=== PATIENT | male | born 1975 | race Caucasian/White ===

== ENCOUNTER 2025-01-20 18:52 | Inpatient (IN) ==
[2025-01-20 19:39] LABS: Hematocrit (blood only) 34.0 % (42.0-52.0); Hemoglobin 11.0 g/dl (14.0-18.0); Immature Granulocytes # (auto) 0.02 K/uL (0.01-0.20); Immature Granulocytes % (auto) 0.2 %; Mean Corpuscular Hemoglobin 29.2 pg (25.0-34.0); Mean Corpuscular Volume 90.2 fL (80.0-100.0); Platelet Count 198 K/uL (130-400); RDW Standard Deviation 42.2 fL (36.4-46.3); Red Blood Count 3.77 M/uL (4.70-6.10); White Blood Count 8.51 K/ul (4.8-10.8)
[2025-01-20 20:07] LABS: Creatinine Clr Calc Pharmacy 19.2 ml/min
[2025-01-20 20:12] LABS: Alanine Aminotransferase 12.0 U/L (7-52); Albumin Globulin Ratio 0.9 (0.9-2); Alkaline Phosphatase 104.0 U/L (34-104); Anion Gap 11.0 (3-11); Bilirubin,Total 0.2 mg/dl (0.2-1.0); Blood Urea Nitrogen 68.0 mg/dl (6-23); Calcium 7.9 mg/dl (8.6-10.3); Carbon Dioxide 15.0 mmol/L (21-32); Chloride 110.0 mmol/L (98-107); Globulin 4.1 gm/dl (2.5-4.0); Glucose 182.0 mg/dl (70-99(Fasting)); Sodium 136.0 mmol/L (136-145); Total Protein 7.8 gm/dl (6.0-8.3)
[2025-01-20 20:16] LABS: Potassium 4.9 mmol/L (3.5-5.1)
[2025-01-20 22:08] LABS: Appearance Urine Clear (Clear); Bacteria Urine Automated None Seen (None Seen); Cast Urine Automated 0-2 /lpf (0-2); Epithelial Cell Urine Auto 0-2 /hpf (0-2); Glucose Urine UA Trace (Negative); RBC Urine Automated 0-2 /hpf (0-2); WBC Urine Automated 0-5 /hpf (0-5)
--- NOTE | 2025-01-20 22:16 | Emergency Department Note ---
Impression & Plan YUNIOR (acute kidney injury), Chronic renal insufficiency, Uncontrolled hypertension ED Provider Note NAME: KENAN [id number] CECI AGE: 49 SEX: M : 1975 ARRIVES VIA: Walk-In INFORMANT: Patient, ED PROVIDER(S): Chiara Mcdowell MD CHIEF COMPLAINT: Abnormal lab work HPI: This is a 49-year-old male presented for abnormal lab work. Patient is a detainee at a [place] [facility] nearby. He was found to have abnormal blood work in addition to hypertension. He has been started on a new blood pressure medication but was stopped when his blood work revealed that he had increasing kidney function. Reportedly kidney function as high as over 5. His potassium was also elevated as well. He was sent to for further evaluation ROS: See above HPI for pertinent positives & negatives. A total of 10 systems reviewed and were otherwise negative. PAST MEDICAL HISTORY: See Below PAST SURGICAL HISTORY: See Below FAMILY HISTORY: See Below SOCIAL HISTORY: See Below HOME MEDICATIONS: See Below ALLERGIES: See Below VITALS: See Below PHYSICAL EXAMINATION: General: resting comfortably in no acute distress Head: Normocephalic and atraumatic Eyes: Normal inspection, extraocular muscles intact Ear, nose, throat: Normal external exam Neck: Normal range of motion Respiratory: lungs clear to auscultation bilaterally Cardiovascular: Regular rate/rhythm, no murmur GI: soft, nontender, no guarding or rebound Extremities: nontender, moves all extremities Neuro: The patient awake and alert, appropriately conversive, no focal deficits, symmetric faces Skin: Warm, dry, and intact MEDICAL DECISION MAKING: This is a 49-year-old male present for abnormal blood work. Patient had outpatient blood work with high potassium and kidney function. Will confirm today. Patient otherwise asymptomatic without any other symptoms. -Bloodwork is reviewed showing leukocytosis, slight anemia at 11. Otherwise BUN 68, creatinine 5.89. Patient does make urine still. Urinalysis unrevealing. -Will with the patient for elevated creatinine, YUNIOR. Differential diagnosis: YUNIOR, renal failure, anuria Independent History obtained from: [employer] guards Diagnostics interpreted by me: ECG: None Cardiac Monitoring: An order was placed for continuous cardiac monitoring. The monitor shows a rate of 77 with sinus rhythm. Past Med/Surg History Problem List (Updated 01/21/25 @ 14:21 by Chiara Mcdowell MD) Normal anion gap metabolic acidosis Uncontrolled hypertension (Acute) Chronic renal insufficiency (Acute) YUNIOR (acute kidney injury) (Acute) Social History Smoking Status: Never smoker Hx Alcohol Use: Yes Alcohol type: beer Hx Substance Use: No Preferred Language: Frisian Communication Ability: Effective Communication Tools: Other Personal Injury Legal Assistant Required: Yes Beliefs That Will Affect Care: None Current Living Situation: Other Current Living Situation Comment: ice facility Feels Safe at Home: Yes Safety Concerns: Feels Safe At This Time Allergies Allergies Allergy/AdvReac Type Severity Reaction Status Date / Time aspirin Allergy Unknown Verified 01/20/25 19:24 Home Meds Home Medications Medication Instructions Recorded Confirmed amlodipine 10 mg tablet 10 mg PO DAILY 01/20/25 01/20/25 clonidine HCl 0.1 mg tablet 0.1 mg PO BID PRN Hypertension 01/20/25 01/20/25 Results & Data (ED) Vital Signs Vital Signs - 24 hr 01/20/25 18:58 01/20/25 19:12 01/20/25 19:19 Temperature 36.4 C L Temperature Source Temporal Artery Scan Pulse Rate 93 H 84 88 Pulse Rhythm Regular Pulse Strength Normal Respiratory Rate 18 20 Respiratory Effort / Characteristics Non-Labored Spontaneous Respiratory Depth Normal Respiratory Pattern Regular Blood Pressure 189/110 H 165/99 H Blood Pressure Mean 136 120 Blood Pressure Position Sitting Pulse Oximetry 97 98 Oxygen Delivery Method Room Air Room Air Sepsis Recent Fever Within 48 Hours No Sepsis New/Unexplained Change in Mental Status N/A Sepsis Action Taken by Nursing No Action Required 01/20/25 20:00 01/20/25 20:30 Temperature Temperature Source Pulse Rate 85 75 Pulse Rhythm Pulse Strength Respiratory Rate 19 Respiratory Effort / Characteristics Respiratory Depth Respiratory Pattern Blood Pressure 160/91 H 180/104 H Blood Pressure Mean 119 123 Blood Pressure Position Pulse Oximetry 98 98 Oxygen Delivery Method Sepsis Recent Fever Within 48 Hours Sepsis New/Unexplained Change in Mental Status Sepsis Action Taken by Nursing Laboratory Data 01/21/25 06:28 01/21/25 06:28 Lab Results 01/20/25 Range/Units 19:15 WBC 8.51 (4.8-10.8) K/ul RBC 3.77 L (4.70-6.10) M/uL Hgb 11.0 L (14.0-18.0) g/dl Hct 34.0 L (42.0-52.0) % MCV 90.2 (80.0-100.0) fL MCH 29.2 (25.0-34.0) pg MCHC 32.4 (32.0-36.0) g/dL RDW Std Deviation 42.2 (36.4-46.3) fL RDW Coeff of Alba 13.0 (11.5-14.5) % Plt Count 198 (130-400) K/uL MPV 11.8 (9.4-12.4) fL Immature Gran % (Auto) 0.2 % Neut % (Auto) 61.9 % Lymph % (Auto) 24.8 % Weston % (Auto) 8.3 % Eos % (Auto) 4.1 % Baso % (Auto) 0.7 % Neut # (Auto) 5.26 (1.40-6.50) K/uL Lymph # (Auto) 2.11 (1.20-3.40) K/uL Weston # (Auto) 0.71 H (0.11-0.59) K/uL Eos # (Auto) 0.35 (0.00-0.50) K/uL Baso # (Auto) 0.06 (0.00-0.20) K/uL Immature Gran # (Auto) 0.02 (0.01-0.20) K/uL Sodium 136 (136-145) mmol/L Potassium 4.9 (3.5-5.1) mmol/L Chloride 110 H (98-107) mmol/L Carbon Dioxide 15 L (21-32) mmol/L Anion Gap 11 (3-11) BUN 68 H (6-23) mg/dl Creatinine 5.89 H* (0.6-1.4) mg/dl Est Cr Clr Drug Dosing 19.2 ml/min eGFR 10.85 BUN/Creatinine Ratio 11.5 (10-20) Glucose 182 H (70-99(Fasting)) mg/dl Calcium 7.9 L (8.6-10.3) mg/dl Total Bilirubin 0.2 (0.2-1.0) mg/dl AST 12 L (13-39) U/L ALT 12 (7-52) U/L Alkaline Phosphatase 104 (34-104) U/L Total Protein 7.8 (6.0-8.3) gm/dl Albumin 3.7 (3.4-5.0) gm/dl Globulin 4.1 H (2.5-4.0) gm/dl Albumin/Globulin Ratio 0.9 (0.9-2) Administered Medications Amlodipine Besylate (Amlodipine Besylate 5 Mg Tab) 10 mg PO DAILY CALDERON Stop: 02/20/25 08:59 Last Admin: 01/21/25 08:42 Dose: 10 mg Documented By: nick Heparin Sodium (Porcine) (Heparin Sod 5,000 Unit/0.5 Ml Vial) 5,000 units SQ Q8 CALDERON Stop: 02/20/25 05:59 Last Admin: 01/21/25 06:12 Dose: 5,000 units Documented By: YANELIS Labetalol HCl (Labetalol Hcl Iv 5 Mg/Ml 20ml) 10 mg IV Q4H PRN PRN Reason: Hypertension Stop: 02/19/25 22:59 Last Admin: 01/21/25 12:06 Dose: 10 mg Documented By: nick Admin: 01/20/25 23:44 Dose: 10 mg Documented By: YANELIS Sodium Bicarbonate (Sodium Bicarbonate 650 Mg Tab) 650 mg PO TID CALDERON Stop: 02/20/25 08:59 Last Admin: 01/21/25 08:42 Dose: 650 mg Documented By: nick Discontinued Medications Sodium Chloride (Nss) 1,000 mls @ 125 mls/hr IV .Q8H CALDERON Stop: 01/21/25 10:27 Last Infusion: 01/21/25 10:29 Dose: 0 mls/hr Documented By: nick Infusion: 01/21/25 07:44 Dose: 125 mls/hr Documented By: nick Admin: 01/20/25 23:45 Dose: 75 mls/hr Documented By: YANELIS Magnesium Sulfate/Dextrose (Magnesium Sulfate / D5w) 1 gm in 100 mls @ 50 mls/hr IV Q2H CALDERON Stop: 01/21/25 11:29 Last Infusion: 01/21/25 12:31 Dose: Infused Documented By: Admin: 01/21/25 10:13 Dose: 50 mls/hr Documented By: nick Infusion: 01/21/25 10:12 Dose: Infused Documented By: nick Admin: 01/21/25 08:08 Dose: 50 mls/hr Documented By: nick Calcium Gluconate () 1,000 mg in 60 mls @ 240 mls/hr IV NOW STA Stop: 01/21/25 07:42 Last Infusion: 01/21/25 08:05 Dose: Infused Documented By: nick Admin: 01/21/25 07:50 Dose: 240 mls/hr Documented By: nick Discharge Plan Visit Data Chief Complaint: Abnormal Labs/Diagnostic Testing Stated Complaint: ABNORMAL LABS ED Provider: Chiara Mcdowell Discharge Problem: YUNIOR (acute kidney injury), Chronic renal insufficiency, Uncontrolled hypertension Patient Disposition: Admitted As Inpatient Condition: Fair Discharge Instructions Interventions: ED Discharge Assessment Last Done: 01/20/25 22:28
--- NOTE | 2025-01-20 22:33 | History & Physical Report ---
Date of Service January 20, 2025 Assessment & Plan (1) YUNIOR (acute kidney injury): Plan: 49-year-old male coming from [facility] for YUNIOR and hyperkalemia. Patient says he has history of kidney stones and surgery for it in the past few times. Patient says he was started on blood pressure medication couple of weeks ago in the long term center. His creatinine was 5.5 and potassium was 5.4 hence patient was sent here. Patient denies any headache. No dizziness. No blurred vision. No earache. No runny nose. No sore throat. No cough. No difficulty swallowing. Appetite is okay. Denies chest pain or shortness of breath. No nausea. No abdominal pain. Normal bowel and bladder movements. Denies any blood in the urine. Denies any rash. Ambulating okay. Currently resting comfortably. YUNIOR Metabolic acidosis Creatinine 5.8. BUN 68. CO2 15 Will follow renal ultrasound Will follow urine creatinine and protein levels No hematuria on UA 3+ protein Gentle fluids Nephro consult in a.m. Hyperkalemia Outpatient labs potassium of 5.4 In the ER potassium was 4.9 Low potassium diet Follow the labs Hypertensive urgency Patient says recently was started on blood pressure medications Continue amlodipine IV labetalol as needed Will monitor Hyperglycemia Will follow HbA1c levels for now Monitor the blood sugars Anemia will follow stool for Hemoccult and iron studies. DVT prophylaxis Heparin subcu Disposition Telemetry Full code. History of Present Illness Chief Complaint: YUNIOR and hyperkalemia Primary Care Provider: [facility] 49-year-old male coming from [facility] for YUNIOR and hyperkalemia. Patient says he has history of kidney stones and surgery for it in the past few times. Patient says he was started on blood pressure medication couple of weeks ago in the long term center. His creatinine was 5.5 and potassium was 5.4 hence patient was sent here. Patient denies any headache. No dizziness. No blurred vision. No earache. No runny nose. No sore throat. No cough. No difficulty swallowing. Appetite is okay. Denies chest pain or shortness of breath. No nausea. No abdominal pain. Normal bowel and bladder movements. Denies any blood in the urine. Denies any rash. Ambulating okay. Currently resting comfo rtably. Past medical history. As mentioned above. Past surgical history. Surgery for kidney stones. Social history. Denies smoking. Alcohol rarely. No drug use. Family history significant for kidney stones as per patient. Allergies Allergy/AdvReac Type Severity Reaction Status Date / Time aspirin Allergy Unknown Verified 01/20/25 19:24 Home Medications Medication Instructions Recorded Confirmed Type amlodipine 10 mg tablet 10 mg PO DAILY 01/20/25 01/20/25 History clonidine HCl 0.1 mg tablet 0.1 mg PO BID PRN Hypertension 01/20/25 01/20/25 History Past Med/Surg History Problem List (Updated 01/20/25 @ 22:42 by Matthew Wharton MD) YUNIOR (acute kidney injury) Social History Smoking Status: Never smoker Hx Alcohol Use: Yes Alcohol type: beer Hx Substance Use: No Preferred Language: Solomon Islander Communication Ability: Effective Communication Tools: IPad Belt Measurer Required: Yes Beliefs That Will Affect Care: None Current Living Situation: Other Current Living Situation Comment: ice facility Feels Safe at Home: Yes Safety Concerns: Feels Safe At This Time Review of Systems Review of Systems: All systems reviewed & are unremarkable except as noted in HPI & below Physical Exam Physical Exam: General- Not in distress Head- atraumatic Eyes- PERRL. ENT- oropharynx clear Neck- supple, no JVD. Lungs- clear to auscultation no wheezing or crackles Heart- regular rhythm; no murmur, no gallop. Abdomen- normal bowel sounds, soft, nontender, no distension Extremities- no pretibial edema, no erythema seen Neuro- alert, oriented PERRL, no facial palsy; no dysarthria; moves extremities Results & Data Results & Data Vital Signs (Past 12 Hours) Vital Signs Temp Pulse Resp BP Pulse Ox O2 Del Method 01/20/25 20:30 75 19 180/104 H 98 01/20/25 20:00 85 160/91 H 98 01/20/25 19:19 88 20 165/99 H 98 Room Air 01/20/25 19:12 84 01/20/25 18:58 36.4 C L 93 H 18 189/110 H 97 Room Air Diagnostic Findings Laboratory Results WBC 8.51 K/ul (4.8-10.8) 01/20/25 19:15 RBC 3.77 M/uL (4.70-6.10) L 01/20/25 19:15 Hgb 11.0 g/dl (14.0-18.0) L 01/20/25 19:15 Hct 34.0 % (42.0-52.0) L 01/20/25 19:15 MCV 90.2 fL (80.0-100.0) 01/20/25 19:15 MCH 29.2 pg (25.0-34.0) 01/20/25 19:15 MCHC 32.4 g/dL (32.0-36.0) 01/20/25 19:15 RDW Std Deviation 42.2 fL (36.4-46.3) 01/20/25 19:15 RDW Coeff of Alba 13.0 % (11.5-14.5) 01/20/25 19:15 Plt Count 198 K/uL (130-400) 01/20/25 19:15 MPV 11.8 fL (9.4-12.4) 01/20/25 19:15 Immature Gran % (Auto) 0.2 % 01/20/25 19:15 Neut % (Auto) 61.9 % 01/20/25 19:15 Lymph % (Auto) 24.8 % 01/20/25 19:15 Ida % (Auto) 8.3 % 01/20/25 19:15 Eos % (Auto) 4.1 % 01/20/25 19:15 Baso % (Auto) 0.7 % 01/20/25 19:15 Neut # (Auto) 5.26 K/uL (1.40-6.50) 01/20/25 19:15 Lymph # (Auto) 2.11 K/uL (1.20-3.40) 01/20/25 19:15 Ida # (Auto) 0.71 K/uL (0.11-0.59) H 01/20/25 19:15 Eos # (Auto) 0.35 K/uL (0.00-0.50) 01/20/25 19:15 Baso # (Auto) 0.06 K/uL (0.00-0.20) 01/20/25 19:15 Immature Gran # (Auto) 0.02 K/uL (0.01-0.20) 01/20/25 19:15 Sodium 136 mmol/L (136-145) 01/20/25 19:15 Potassium 4.9 mmol/L (3.5-5.1) 01/20/25 19:15 Chloride 110 mmol/L (98-107) H 01/20/25 19:15 Carbon Dioxide 15 mmol/L (21-32) L 01/20/25 19:15 Anion Gap 11 (3-11) 01/20/25 19:15 BUN 68 mg/dl (6-23) H 01/20/25 19:15 Creatinine 5.89 mg/dl (0.6-1.4) H* 01/20/25 19:15 Est Cr Clr Drug Dosing 19.2 ml/min 01/20/25 19:15 eGFR 10.85 01/20/25 19:15 BUN/Creatinine Ratio 11.5 (10-20) 01/20/25 19:15 Glucose 182 mg/dl (70-99(Fasting)) H 01/20/25 19:15 Calcium 7.9 mg/dl (8.6-10.3) L 01/20/25 19:15 Total Bilirubin 0.2 mg/dl (0.2-1.0) 01/20/25 19:15 AST 12 U/L (13-39) L 01/20/25 19:15 ALT 12 U/L (7-52) 01/20/25 19:15 Alkaline Phosphatase 104 U/L (34-104) 01/20/25 19:15 Total Protein 7.8 gm/dl (6.0-8.3) 01/20/25 19:15 Albumin 3.7 gm/dl (3.4-5.0) 01/20/25 19:15 Globulin 4.1 gm/dl (2.5-4.0) H 01/20/25 19:15 Albumin/Globulin Ratio 0.9 (0.9-2) 01/20/25 19:15 Urine Color Yellow 01/20/25 Unknown Urine Appearance Clear (Clear) 01/20/25 Unknown Urine pH 6.5 (4.5-7.5) 01/20/25 Unknown Ur Specific [place] 1.013 (1.000-1.030) 01/20/25 Unknown Urine Protein 3+ (Negative) H 01/20/25 Unknown Urine Glucose (UA) Trace (Negative) H 01/20/25 Unknown Urine Ketones Negative (Negative) 01/20/25 Unknown Urine Blood Trace (Negative) H 01/20/25 Unknown Urine Nitrite Negative (Negative) 01/20/25 Unknown Urine Bilirubin Negative (Negative) 01/20/25 Unknown Urine Urobilinogen Negative (Negative) 01/20/25 Unknown Ur Leukocyte Esterase Negative (Negative) 01/20/25 Unknown Urine WBC (Auto) 0-5 /hpf (0-5) 01/20/25 Unknown Urine RBC (Auto) 0-2 /hpf (0-2) 01/20/25 Unknown U Hyaline Cast (Auto) 0-2 /lpf (0-2) 01/20/25 Unknown U Epithel Cells (Auto) 0-2 /hpf (0-2) 01/20/25 Unknown Urine Bacteria (Auto) None Seen (None Seen) 01/20/25 Unknown Urine Comment 01/20/25 Unknown ECG Additional Comments: ECG. Normal sinus rhythm rate of 84. Minimal voltage cardia for LVH. No acute ST changes seen. Code Status & VTE Plan VTE Prophylaxis Plan VTE Prophylaxis will be ordered: Yes
[2025-01-20] MEDS ORDERED: ACETAMINOPHEN 325 MG TAB PO PRN (23:00)
[2025-01-20] MEDS ORDERED: POLYETHYLENE (MIRALAX) 17 GM PACK PO PRN (23:00)
[2025-01-20] MEDS ORDERED: NITROGLYCERIN SL 0.4 MG/TAB TAB SL PRN (23:00)
[2025-01-20] MEDS: LABETALOL HCL IV 5 MG/ML 20ML IV PRN (23:44)
[2025-01-20] MEDS: SODIUM CHLORIDE 0.9% 1,000 ML IV SCH (23:45)
--- NOTE | 2025-01-21 00:55 | Ultrasound Report ---
Exam(s): US RENAL EXAM: US Retroperitoneal Complete, Renal CLINICAL HISTORY: YUNIOR. TECHNIQUE: Real-time complete ultrasound of the retroperitoneum with image documentation. COMPARISON: No relevant prior studies available. FINDINGS: Right kidney: There is increased echogenicity of the right kidney. The right kidney measures 8.2 cm. Simple appearing cysts are present, no follow-up is needed. No hydronephrosis or visualized mass. No stones. Left kidney: There is increased echogenicity of the left kidney. The left kidney measures 13.4 cm. Simple appearing cysts are present, no follow-up is needed. No hydronephrosis or visualized mass. No stones. Bladder: Unremarkable as visualized. Soft tissues: The prostate gland appears enlarged. IMPRESSION: 1. Increased echogenicity of the cortex of the kidneys is most consistent with chronic medical renal disease. 2. No hydronephrosis. 3. The prostate gland appears enlarged. Electronically signed by: Kimi Hollingsworth MD 01/21/25 00:54 AM
[2025-01-21 01:05] LABS: Total Protein Urine Random 282.2 mg/dl (0-11.9)
[2025-01-21] MEDS: HEPARIN SOD 5,000 UNIT/0.5 ML VIAL SQ SCH (06:12)
[2025-01-21 06:52] LABS: Hematocrit (blood only) 30.4 % (42.0-52.0); Hemoglobin 10.2 g/dl (14.0-18.0); Immature Granulocytes # (auto) 0.02 K/uL (0.01-0.20); Immature Granulocytes % (auto) 0.2 %; Mean Corpuscular Hemoglobin 30.8 pg (25.0-34.0); Mean Corpuscular Volume 91.8 fL (80.0-100.0); Platelet Count 166 K/uL (130-400); RDW Standard Deviation 42.8 fL (36.4-46.3); Red Blood Count 3.31 M/uL (4.70-6.10); White Blood Count 8.51 K/ul (4.8-10.8)
[2025-01-21 07:25] LABS: Anion Gap 8.0 (3-11); Blood Urea Nitrogen 63.0 mg/dl (6-23); Calcium 7.7 mg/dl (8.6-10.3); Carbon Dioxide 18.0 mmol/L (21-32); Chloride 112.0 mmol/L (98-107); Creatinine Clr Calc Pharmacy 19.4 ml/min; Glucose 117.0 mg/dl (70-99(Fasting)); Magnesium 1.6 mg/dl (1.7-2.4); Potassium 4.4 mmol/L (3.5-5.1); Sodium 138.0 mmol/L (136-145)
[2025-01-21 07:28] LABS: Hemoglobin A1C 8.1 % (4.5-5.6)
--- NOTE | 2025-01-21 07:29 | Nephrology Consultation ---
Date of Consultation January 21, 2025 Assessment & Plan (1) Chronic renal insufficiency: imaging as well as the discrepancy in kidney sizes supports this renal insufficiency as chronic; baseline unknown. With serum albumin 3.7, doubt the protein to creatinine ratio 4.7 g is a true ratio though it could be. In any event doubt nephrotic syndrome with albumin this high. Renal imaging not consistent with polycystic kidney disease, though he does have multiple small cysts bilaterally. given discrepancy in size between kidneys I suspect he had partial obstruction in blood flow at some remote timepoint to R kidney. do not believe he needs further Reevaluate renal function tomorrow but I suspect that a significant component of this renal dysfunction is chronic. >he shoudl avoid all nsaids in pain control; tylenol up to 3 gm daily is reasonable > he needs to have very close outpatient follow up of his renal function (2) YUNIOR (acute kidney injury): unknown baseline. Creatinine 5.5 at outpatient care home center in 5.9 here. no indication for emergent dialysis but if #s stay in this range he may need to start chronic HD >reasonable to try 1 L of IV fluids which is nearly complete. Would not give IV fluids more than 1 L >>we need past records; suggest contacting 1) care home center to find out if any other chem panels on file besides one w/ creat >5 and 2) offices where pt had prior urology or/and if applicable PCP care for baseline renal function; did discuss w/ Dr Vergara, attending at [facility] facility and he is trying to get records from [facility] where pt was seen apparently for HTN urgency a few weeks back (3) Uncontrolled hypertension: no e/o HTN emergency; target SBP next few days 150-160s systolic. Seen at [facility] in [facility] a few weeks back for HTN per Dr Vergara. >>unclear if HTN urgency >> monitor for this >>amlodipine 10 mg daily continued as well as PRN labetalol; reasonable >>AVOID clonidine which exacerbates BP swings, seymour prn clonidine >>suggest TTE to evaluate for LVH, for WMA, valvular status etc (4) Normal anion gap metabolic acidosis: UA and chemistries and stone hx suggestive of chronic tubular dysfunction, Started on sodium bicarbonate 650 three times daily p.o. > continue for now; unclear if this will help but not likely to cause short term problems daily bmp History of Present Illness Reason for Consultation: YUNIOR Requesting Physician: Dr Wharton Attending Physician: Jay Denney MD History of Present Illness 49-year-old male whom I am asked to evaluate for acute kidney injury was admitted last evening for same after being sent from [facility] for same; on presentation here he had creatinine 5.8, CO2 15 and 3+ proteinuria. Past medical history includes multiple episodes of kidney stones status post 3 urologic procedures and recently back on meds for longstanding send hypertension for which he just started on amlodipine and clonidine. He has been at the care home center for several weeks. No NSAIDs currently but has taken them in the past. He tells me he has had frothy urine off and on for several years. No gross hematuria except 10 years ago when he had his most recent stone. Has been told for years that he has hypertension and has been on medications off and on for a year but none recently. No shortness of breath no edema no flank pain no recent infections fevers chills. No nausea or vomiting. No chest pain or palpitations. No focal numbness or weakness he has never broken a bone let alone had a pathologic fracture. Blood pressure on presentation was 189/110 and remained in the 160s to 180s systolic over 90s to 100s diastolic until this morning with his most recent pressure 158/92. Some dipstick proteinuria glucosuria and microhematuria. Labs this morning essentially unchanged on the chemistry panel. Renal ultrasound shows 8.2 cm right kidney with 13.4 cm left kidney and no obstruction. He was started on labetalol 10 mg IV q.4 hours PRN (had 1 dose so far); also started on normal saline at 75 mL hourly for 1 L total. He had no boluses. Past medical and surgical history as above. Social history: Rare alcohol; no tobacco. Formerly employed for 10 years at a [employer]. Family history: No CKD no ESRD. 2 cousins had stones else no other significant renal history in the family. No stones in his parents or siblings/ primary relatives Allergies Allergy/AdvReac Type Severity Reaction Status Date / Time aspirin Allergy Unknown Verified 01/20/25 19:24 Home Medications Medication Instructions Recorded Confirmed Type amlodipine 10 mg tablet 10 mg PO DAILY 01/20/25 01/20/25 History clonidine HCl 0.1 mg tablet 0.1 mg PO BID PRN Hypertension 01/20/25 01/20/25 History Patient History Social History Smoking Status: Never smoker Hx Alcohol Use: Yes Alcohol type: beer Hx Substance Use: No Preferred Language: Sri Lankan Communication Ability: Effective Communication Tools: Other Barge Pilot Required: Yes Beliefs That Will Affect Care: None Current Living Situation: Other Current Living Situation Comment: ice facility Feels Safe at Home: Yes Safety Concerns: Feels Safe At This Time Review of Systems 2 Review of Systems: All systems reviewed & are unremarkable except as noted in HPI & below Physical Exam 2 Constitutional: well developed and well nourished Eyes: EOM intact bilaterally ENMT: Ears: no external ear abnormality Nose: no external nose abnormality Mouth: + dry oral mucous membranes Neck: no nuchal rigidity Respiratory: normal respiratory effort Auscultation: + diminished lung sounds Cardiovascular: RRR, no murmur, no edema Gastrointestinal (Abdomen): Inspection/Auscultation: normal bowel sounds P ercussion/Palpation: abdomen soft; abdomen nontender Musculoskeletal: Extremities: strength 5/5 throughout Skin: no rashes, warm and dry Neurologic: george, fluent speech, no tremor Psychiatric: Orientation: alert and oriented x 3 Results & Data Vital Signs (Past 12 Hours) Vital Signs Temp Pulse Pulse Resp BP BP Pulse Ox 01/21/25 03:52 36.6 C 75 16 158/92 H 98 01/21/25 00:09 75 165/90 H 01/20/25 23:44 84 203/116 H 01/20/25 23:01 37 C 87 20 203/116 H 97 01/20/25 23:00 79 01/20/25 23:00 01/20/25 23:00 01/20/25 20:30 75 19 180/104 H 98 01/20/25 20:00 85 160/91 H 98 O2 Del Method O2 Del Method 01/21/25 03:52 Room Air 01/21/25 00:09 01/20/25 23:44 01/20/25 23:01 Room Air 01/20/25 23:00 01/20/25 23:00 Room Air 01/20/25 23:00 Room Air 01/20/25 20:30 01/20/25 20:00 Laboratory Results 01/21/25 06:28 09/13/25 06:28 Diagnostic Findings Renal ultrasound Right kidney: There is increased echogenicity of the right kidney. The right kidney measures 8.2 cm. Simple appearing cysts are present, no follow-up is needed. No hydronephrosis or visualized mass. No stones. Left kidney: There is increased echogenicity of the left kidney. The left kidney measures 13.4 cm. Simple appearing cysts are present, no follow-up is needed. No hydronephrosis or visualized mass. No stones. Bladder: Unremarkable as visualized. Soft tissues: The prostate gland appears enlarged. IMPRESSION: 1. Increased echogenicity of the cortex of the kidneys is most consistent with chronic medical renal disease. 2. No hydronephrosis. 3. The prostate gland appears enlarged.
[2025-01-21] MEDS: CALCIUM GLUCONATE 1,000 MG/60 ML BAG IV STA (07:50)
[2025-01-21] MEDS: MAGNESIUM SULFATE / D5W 1 GM/100 ML BAG IV SCH (08:08)
[2025-01-21 08:16] LABS: Iron 82.0 mcg/dl (35-175); Total Iron Binding Cap Calc 265.0 mcg/dl (250-450); Transferrin 189.0 mg/dl (200-360); Transferrin (FE) Percent Satur 31.0 % (20-50)
[2025-01-21] MEDS: SODIUM BICARBONATE 650 MG TAB PO SCH (08:42)
[2025-01-21 08:58] LABS: Folate (Folic Acid),Ser orPlas 13.0 ng/ml (>5.38)
[2025-01-21 08:59] LABS: Vitamin B12 224.0 pg/ml (180-914)
[2025-01-21] MEDS ORDERED: GLUCAGON FOR INJ 1 MG VIAL SQ PRN (12:23)
[2025-01-21] MEDS ORDERED: GLUCOSE 10 TAB/TUBE PO PRN (12:23)
[2025-01-21] MEDS ORDERED: DEXTROSE 50% 50 ML SYRINGE IV PRN (12:23)
[2025-01-21] MEDS ORDERED: GLUCOSE 40% GEL 15 GM TUBE PO PRN (12:23)
[2025-01-21] MEDS ORDERED: CARBOHYDRATES FOR HYPOGLYCEMIA PO PRN (12:23)
--- NOTE | 2025-01-21 12:23 | Hospitalist Progress Note ---
Date of Service January 21, 2025 Assessment & Plan (1) YUNIOR (acute kidney injury): Plan: 49-year-old male coming from [facility] for YUNIOR and hyperkalemia. YUNIOR on CKD Metabolic Acidosis Nephrotic Syndrome -Creatinine 5.8. BUN 68. CO2 15 -UA and presentation suggests chronic nephrotic syndrome -still making significant urine -likely secondary to uncontrolled HTN/DM Type 2, per patient no family hx of kidney disease, unclear if autoimmune component vs. other Plan: -nephrology consult, appreciate recs -start bicarb 650 tid given evidence of chronic nephropathy -check phos, urine creatinine, urine sodium to complete metabolic workup -hold fluids for now -likely needs kidney biopsy outpatient to determine definitive etiology pending course -may need chronic HD in near future pending creatinine trend Primary Hypertension -continue amlodipine -may need to start hydralazine to control BP DM Type 2 -new diagnosis, based off of A1c -start SSI, peer educator consult -will benefit from oral agent at discharge Anemia of Renal Disease -will follow stool for Hemoccult and iron studies I spent a total of 50 minutes in direct patient care, including [id number] time with the patient and/or family, reviewing medical records, ordering and reviewing diagnostic tests, and coordinating care with other healthcare providers. This time includes: history taking, physical examination, medical decision making, counseling, ECG interpretation, imaging interpretation, lab interpretation, orders, and education, excluding time spent in the performance of separately billed services. Admission and Anticipated Discharge Date Admission Date: January 20, 2025 Subjective Patient seen and examined at bedside. [facility] present. Patient states he is asymptomatic, feeling well. No leg swelling, no chest pain or SOB at this time. Review of Systems Review of Systems: CONSTITUTIONAL: Patient denies fevers, chills, sweats and weight changes. EYES: Patient denies any visual symptoms. EARS, NOSE, AND THROAT: No difficulties with hearing. No symptoms of rhinitis or sore throat. CARDIOVASCULAR: Patient denies chest pains, palpitations, orthopnea and paroxysmal nocturnal dyspnea. RESPIRATORY: No dyspnea on exertion, no wheezing or cough. GI: No nausea, vomiting, diarrhea, constipation, abdominal pain, hematochezia or melena. : No urinary hesitancy or dribbling. No nocturia or urinary frequency. No abnormal urethral discharge. MUSCULOSKELETAL: No myalgias or arthralgias. NEUROLOGIC: No chronic headaches, no seizures. Patient denies numbness, tingling or weakness. PSYCHIATRIC: Patient denies problems with mood disturbance. No problems with anxiety. ENDOCRINE: No excessive urination or excessive thirst. DERMATOLOGIC: Patient denies any rashes or skin changes. Physical Exam Physical Exam: Gen: A&O 3 NAD HEENT: NCAT, EOMI, not icteric. External ears normal. No rhinorrhea. Moist mucous membranes. Neck: Supple, full range of motion, no observable masses, No meningeal sign. Lungs: No Respiratory distress. CV: RRR, no edema. Abdomen: Soft, nondistended, No rebound tenderness. MSK: No joint swelling, no redness. Skin: No rashes, petechiae, lesions. Normal color per patient. Neuro: Normal Gait, Grossly intact. Psych: Appropriate for situation. Results & Data Results & Data Vital Signs (Past 12 Hours) Vital Signs Temp Pulse Pulse Resp BP BP Pulse Ox 01/21/25 12:06 183/97 H 01/21/25 11:49 36.4 C L 76 18 183/97 H 98 01/21/25 08:45 77 01/21/25 07:57 36.3 C L 73 18 168/94 H 98 01/21/25 03:52 36.6 C 75 16 158/92 H 98 O2 Del Method 01/21/25 12:06 01/21/25 11:49 Room Air 01/21/25 08:45 01/21/25 07:57 Room Air 01/21/25 03:52 Room Air Laboratory Results -personally reviewed, creatinine similar to admission creatinine, bicarb low suggestive of ongoing nephropathy Medications Administered Amlodipine Besylate (Amlodipine Besylate 5 Mg Tab) 10 mg PO DAILY [facility] Stop: 02/20/25 08:59 Last Admin: 01/21/25 08:42 Dose: 10 mg Documented By: nick Heparin Sodium (Porcine) (Heparin Sod 5,000 Unit/0.5 Ml Vial) 5,000 units SQ Q8 [facility] Stop: 02/20/25 05:59 Last Admin: 01/21/25 06:12 Dose: 5,000 units Documented By: YANELIS Labetalol HCl (Labetalol Hcl Iv 5 Mg/Ml 20ml) 10 mg IV Q4H PRN PRN Reason: Hypertension Stop: 02/19/25 22:59 Last Admin: 01/21/25 12:06 Dose: 10 mg Documented By: nick Admin: 01/20/25 23:44 Dose: 10 mg Documented By: YANELIS Sodium Bicarbonate (Sodium Bicarbonate 650 Mg Tab) 650 mg PO TID [facility] Stop: 02/20/25 08:59 Last Admin: 01/21/25 08:42 Dose: 650 mg Documented By: nick
[2025-01-21] MEDS: INSULIN ASPART PER UNIT CHARGE SC SCH (17:03)
[2025-01-21 21:57] VITALS: RESP 18
[2025-01-22 07:36] VITALS: TEMP 97.9; O2SAT 98
[2025-01-22] MEDS: CHLORTHALIDONE 25 MG TAB PO SCH (08:30)
[2025-01-22 08:53] LABS: Anion Gap 7.0 (3-11); Blood Urea Nitrogen 61.0 mg/dl (6-23); Calcium 8.5 mg/dl (8.6-10.3); Carbon Dioxide 21.0 mmol/L (21-32); Chloride 109.0 mmol/L (98-107); Creatinine Clr Calc Pharmacy 19.4 ml/min; Glucose 123.0 mg/dl (70-99(Fasting)); Magnesium 1.8 mg/dl (1.7-2.4); Potassium 4.9 mmol/L (3.5-5.1); Sodium 137.0 mmol/L (136-145)
--- NOTE | 2025-01-22 10:14 | Nephrology Progress Note ---
Date of Service January 22, 2025 Assessment & Plan (1) Chronic renal insufficiency: Plan: imaging as well as the discrepancy in kidney sizes supports this renal insufficiency as chronic; baseline unknown. With serum albumin 3.7, doubt the protein to creatinine ratio 4.7 g is a true ratio though it could be. In any event doubt nephrotic syndrome with albumin this high. Renal imaging not consistent with polycystic kidney disease, though he does have multiple small cysts bilaterally. given discrepancy in size between kidneys I suspect he had partial obstruction in blood flow at some remote timepoint to R kidney. do not believe he needs further Reevaluate renal function tomorrow but I suspect that a significant component of this renal dysfunction is chronic. >he shoudl avoid all nsaids in pain control; tylenol up to 3 gm daily is reasonable (large framed individual with normal liver function tests) > he needs to have very close nephrology outpatient follow up of his renal function > work should be started immediately on obtaining an AV fistula for dialysis if renal function unchanged in 2-4 wks time or sooner if outside hospital documents show renal function is stable w/ eGFR low teens; he should immediately have education about different dialysis modalities > PD v HD (not clear what modalities will be available to him after deportation) >>HgbA1c 8.1% so also w/ DM now too Spoke w/ pt face to face for 25 minutes regarding above/below Care coordinated w/ Dr Denney by phone for 10 minutes regarding medications, d/c dispo and recs, kidney dz chronicity, background data; we are in agreement NEPH SIGN OFF NOTE DXS (all new): -DM -Stage 2 HTN, likely resistant HTN -advanced CKD, likely stage 5, likely eGFR 10 RXS: -amlodipine 10 mg daily -chlorthalidone 25 mg daily -sodium bicarbonate 650 mg tid -carvedilol 25 mg bid -DM medications as per hospitalist OTHER CARE RECS: -ESRD treatment options education in the next 1-2 wks > pls contact my office for advice/guidance -follow up of outside records of renal function from [facility] in [facility] > any blood, urine testing, any imaging, ED note for reported visit for HTN urgency -low sodium, low phos, low potassium diet -education on diet for DM, for ESRD -for now no fluid limit -will likely need AV fistula surgically created next 2-4 wks and follow up ideally w/ same surgeon for 6-8 wks thereafter as fistula matures << pt tells me [place] -diabetes self care education -TTE to eval for LVH -d/t resistant HTN, recommend sleep study to identify /treat sleep apnea if present -check BMP weekly w/ phos -log BP daily using good technique and send to neph office visit for review -maintain continuity of care as much as possible as he transitions to ESRD and w/ new dx of DM F/U APPTS: -should see nephrology w/in a week of d/c; I have an office in [place] where he could be seen; telehealth options available; pls contact hospital d/c coordinator if appt desired Total time spent 60 minutes (2) YUNIOR (acute kidney injury): Plan: unknown baseline. Creatinine 5.5 at outpatient [facility] in 5.9 here. no indication for emergent dialysis but if #s stay in this range he may need to start chronic HD. #s remain unchanged essentially >reasonable to try 1 L of IV fluids which is nearly complete. Would not give IV fluids more than 1 L >>we need past records; suggest contacting 1) [facility] center to find out if any other chem panels on file besides one w/ creat >5 x 2) offices where pt had prior urology or/and if applicable PCP care for baseline renal function; did discuss w/ Dr Vergara, attending at [facility] facility and he is trying to get records from [facility] hospital where pt was seen apparently for HTN urgency a few weeks back (3) Uncontrolled hypertension: Plan: no e/o HTN emergency; target SBP next few days 150-160s systolic. Seen at [facility] in [facility] a few weeks back for HTN per Dr Vergara. No evidence of hypertensive emergency, though truly I cannot say without seeing his baseline renal function >> Follow-up on records from outside hospital >>amlodipine 10 mg daily continued which is reasonable >>AVOID clonidine which exacerbates BP swings, seymour prn clonidine >> Suggest given his long history of hypertension that he be on a beta-bethany because he more than likely has left ventricular hypertrophy (no echo still pending): Started carvedilol 12.5 mg twice daily >>not markedly overloaded; see how he does on chlorthalidone; may need to change out to torsemide ultimately >>suggest TTE to evaluate for LVH, for WMA, valvular status etc (4) Normal anion gap metabolic acidosis: Plan: UA and chemistries and stone hx suggestive of chronic tubular dysfunction, Started on sodium bicarbonate 650 three times daily p.o. > continue for now; unclear if this will help but not likely to cause short term problems daily bmp >continue sodium bicarb current dose now and at discharge Admission and Anticipated Discharge Date Admission Date: January 20, 2025 Subjective No acute interval clinical eventsDenies shortness of breath nausea vomiting palpitations edema Physical Exam 2 Constitutional: well developed and well nourished Eyes: EOM intact bilaterally ENMT: Ears: no external ear abnormality Nose: no external nose abnormality Mouth: + dry oral mucous membranes Neck: no nuchal rigidity Respiratory: normal respiratory effort Auscultation: + diminished lung sounds Cardiovascular: RRR, no murmur, no edema Gastrointestinal (Abdomen): Inspection/Auscultation: normal bowel sounds P ercussion/Palpation: abdomen soft; abdomen nontender Musculoskeletal: Extremities: strength 5/5 throughout Skin: no rashes, warm and dry Psychiatric: Orientation: alert and oriented x 3 Results & Data Vital Signs (Past 12 Hours) Vital Signs Temp Pulse Resp BP BP Pulse Ox O2 Del Method 01/22/25 09:54 72 164/83 H 01/22/25 07:34 36.6 C 84 18 170/92 H 98 Room Air 01/21/25 23:28 36.5 C 89 18 169/94 H 97 Room Air Laboratory Results 01/21/25 06:28 01/22/25 07:54
[2025-01-22 12:43] VITALS: BP 164/90; PULSE 90
--- NOTE | 2025-01-22 13:28 | Discharge Summary ---
Discharge Summary Date of Service January 22, 2025 Principal Dx & Hospital Course #1 = Principal Diagnosis (1) YUNIOR (acute kidney injury): 49-year-old male coming from [facility] for YUNIOR and hyperkalemia. CKD Stage V Metabolic Acidosis Nephrotic Syndrome -Creatinine 5.8. BUN 68. CO2 15 -UA and presentation suggests chronic nephrotic syndrome -still making significant urine -likely secondary to uncontrolled HTN/DM Type 2, per patient no family hx of kidney disease, unclear if autoimmune component vs. other Plan: -amlodipine 10 mg daily -chlorthalidone 25 mg daily -sodium bicarbonate 650 mg tid -carvedilol 25 mg bid -appreciate nephrology recs, needs outpatient discussion of kidney options including transplant, starting HD Primary Hypertension -continue amlodipine -may need to start hydralazine to control BP DM Type 2 -new diagnosis, based off of A1c -discharge on sitagliptin renally dosed Anemia of Renal Disease -will follow stool for Hemoccult and iron studies Notes For Next Care Provider 49-year-old male coming from [facility] for YUNIOR and hyperkalemia. Ad mitted to medicine for elevated creatinine. On medicine, blood pressure medication titrated for improvement. Nephrology consulted, feel likely CKD stage V. New onset diabetes, started on insulin inpatient. On 01/22/2025 patient medically table for discharge. To do: [ ] f/u with nephrology outpatient [ ] take new diabetes medication [ ] titrate BP meds Medication Changes From Visit -amlodopine, coreg, sitagliptin, Admission HPI Per Admitting Provider 49-year-old male coming from [facility] for YUNIOR and hyperkalemia. Patient says he has history of kidney stones and surgery for it in the past few times. Patient says he was started on blood pressure medication couple of weeks ago in the assisted center. His creatinine was 5.5 and potassium was 5.4 hence patient was sent here. Patient denies any headache. No dizziness. No blurred vision. No earache. No runny nose. No sore throat. No cough. No difficulty swallowing. Appetite is okay. Denies chest pain or shortness of breath. No nausea. No abdominal pain. Normal bowel and bladder movements. Denies any blood in the urine. Denies any rash. Ambulating okay. Currently resting comfortably. Past medical history. As mentioned above. Past surgical history. Surgery for kidney stones. Social history. Denies smoking. Alcohol rarely. No drug use. Family history significant for kidney stones as per patient. Discharge Exam Gen: A&O 3 NAD HEENT: NCAT, EOMI, not icteric. External ears normal. No rhinorrhea. Moist mucous membranes. Neck: Supple, full range of motion, no observable masses, No meningeal sign. Lungs: No Respiratory distress. CV: RRR, no edema. Abdomen: Soft, nondistended, No rebound tenderness. MSK: No joint swelling, no redness. Skin: No rashes, petechiae, lesions. Normal color per patient. Neuro: Normal Gait, Grossly intact. Psych: Appropriate for situation. Updated Medication List Medication Instructions Recorded Confirmed Type amlodipine 10 mg tablet 10 mg PO DAILY 01/20/25 01/20/25 History carvedilol 25 mg tablet 25 mg PO BIDM 30 days #60 tabs 01/22/25 Rx chlorthalidone 25 mg tablet 25 mg PO QAM 30 days #30 tabs 01/22/25 Rx sitagliptin phosphate 25 mg tablet 25 mg PO DAILY #30 tabs 01/22/25 Rx (Januvia) sodium bicarbonate 650 mg tablet 650 mg PO TID 30 days #90 tabs 01/22/25 Rx Hospital Stay Data Consultations 01/20/25 20:29 ED Decision to Admit Stat 01/21/25 08:00 Consult Nephrology Routine Diagnostic Imagining Performed 01/20/25 22:19 US Renal Bladder [US renal/blad retro comp] Urgent Pending Results Patient Have Any Pending Studies at Discharge: Yes Discharge Instructions Given to Patient (Per Discharging Provider) Diagnosis: CKD Stage IV, primary hypertension, new onset DM Type 2, class III obesity Follow Ups: PCP, nephrology, sleep medicine Incidental Findings: bilateral simple renal cysts, enlarged prostate 1. Please follow up with PCP, nephrology, and sleep medicine (for sleep study). 2. Encourage weight loss. 3. Take medications as prescribed. Total Time Total Time Spent Total Time Spent (In Minutes): I spent a total of 35 minutes in direct patient care, including [id number] time with the patient and/or family, reviewing medical records, ordering and reviewing diagnostic tests, and coordinating care with other healthcare providers. This time includes: history taking, physical examination, medical decision making, counseling, ECG interpretation, imaging interpretation, lab interpretation, orders, and education, excluding time spent in the performance of separately billed services.
--- NOTE | 2025-01-22 15:43 | XCELERA ---
[id number]
--- NOTE | 2025-01-23 12:59 | Electrocardiogram Report ---
Test Reason : Blood Pressure : */* mmHG Vent. Rate : 84 BPM Atrial Rate : 84 BPM P-R Int : 164 ms QRS Dur : 88 ms QT Int : 366 ms P-R-T Axes : 47 14 19 degrees QTcB Int : 432 ms Normal sinus rhythm Minimal voltage criteria for LVH, may be normal variant ( R in aVL ) Borderline ECG No previous ECGs available Confirmed by Abrahan Garcia ([id number]) on 01/23/2025 12:58:35 PM Referred By: [facility] Confirmed By: Abrahan Garcia
== END 2025-01-22 13:15 | DRG 683 ==
LOC: ED 18:52 → 2S 22:18 → 3E 01-21 12:32